=== PATIENT | female | born 1990 | race Caucasian/White ===

== ENCOUNTER → 2017-03-23 | Outpatient (REF) | LOC: WSOH 18:45 | DX: Z02.89 Encounter for other administrative examinations (principal) ==

== ENCOUNTER 2019-10-06 00:10 | Inpatient (IN) | payer OTHER ==
[2019-10-06] VITALS (24 sets, daily range): BP systolic 112–145; BP diastolic 58–89; PULSE 82–126; TEMP 97.2–98.7
[~2019-10-06] VITALS: Ht 162.6 cm; Wt 81.8 kg
--- NOTE | 2019-10-06 00:15 | NUR ---
G1 at 39 weeks and 3 days arrives to unit with complaint of contractions every 5 minutes for the past hour. Pt reports contractions started getting worse around 1600 but only every 10 minutes. Pt denies LOF and has had some bloody show. Good movement. Pt oriented to room, call light within reach, bed in low and locked position. Clean gown on. US and toco explained and applied. Pt reports having a subchorionic hematoma that has resolved and baby had been breech up until 36 weeks. Vital signs obtained. Admission assessment started. Plan of care reviewed. SVE -/-1, membranes intact.
--- NOTE | 2019-10-06 00:50 | NUR ---
Pt desires intermittent monitoring but Category 2 FHR tracing at this time with no accelerations. Pt repositioned to left lateral and ice chips given to patient.
--- NOTE | 2019-10-06 01:00 | NUR ---
0100 - IV attempted in left forearm by this RN, unsuccessful. 2nd RN called to bedside. 0115 - IV attempt in right hand and left forearm, unsuccessful. supervisor garage called to bedside to help. 0125 - supervisor garage at bedside. IV attempt in left hand and right hand, unsuccessful. Additional RN called to bedside. 0140 - Category 1 FHR tracing obtained. Pt wishing to be able to move and take monitors off. Monitors removed. Plan of care reviewed. 0145 - [employer]ADEM[employer] A[employer]IXER at bedside for IV placement. Attempt in right AC unsuccessful. IV started in left AC with 20G. Admission labs obtained off IV start.
[2019-10-06] MEDS ORDERED: PRENATAL TABLET PO (01:28)
[2019-10-06] MEDS ORDERED: VITAMIND3 5000 PO (01:29)
[2019-10-06 02:29] LABS: BASO % 0.2 % (0.0-2.0); EOS % 0.1 % (0-4.0); GRAN # 14.9 (1.4-6.5); GRAN % 86.2 % (42.2-75.2); HEMATOCRIT 43.5 % (37.0-47.0); HEMOGLOBIN 14.7 g/dl (12.5-16.0); LYMPH # 1.5 (1.2-3.4); LYMPH % 8.6 % (20.0-51.0); MEAN CELL VOLUME 92 fl (80.0-100.0); MEAN CORPUSCULAR HEMOGLOBIN 31 pg (27.0-31.0); MEAN CORPUSCULAR HGB CONC 34 g/dl (33.0-37.0); MEAN PLATELET VOLUME 10.1 fl (7.4-10.4); MONO # 0.8 (0.1-0.6); MONO % 4.4 % (1.7-9.3); PLATELET COUNT 208 K/mm3 (130-400); RED BLOOD COUNT 4.71 M/mm3 (4.10-5.30); REDCELL DISTRIBUTION WIDTH-CV 12.8 % (11.5-14.5)
--- NOTE | 2019-10-06 02:45 | NUR ---
0220 - Monitors on for intermittent monitoring. Pt sitting on birthing ball. Maternal HR tracing at times due to maternal positioning, RN at bedside to handhold monitor. 0240 - Pt reports feeling more pressure in rectum. Back in bed for SVE. SVE /-1, membranes intact. Plan of care reviewed. Pt back to birthing ball. 0245 - Category 1 FHR tracing obtained. Monitors removed.
--- NOTE | 2019-10-06 03:25 | NUR ---
[id number] Monitors on for intermittent monitoring. Pt sitting on birthing ball with spouse provided counter pressure to lower back. RN handholding monitor. Contractions palpate firm. Monitors removed for intermittent monitoring after 20 minutes. Plan of care reviewed with patient and spouse.
--- NOTE | 2019-10-06 04:50 | NUR ---
[id number] Monitors on for intermittent monitoring. RN at bedside handholding monitors. Contractions palpate firm. Category 1 FHR tracing obtained. Monitors off after 20 minutes. Pt states feeling more rectal pressure and urge to push with contractions SVE 9/90/0, bulging bag of water.
--- NOTE | 2019-10-06 05:51 | NUR ---
0510 - Pt reports feeling more of an urge to push. SVE /0 with bulging bag of water [id number] Intermittent monitoring started. RN handholding US while patient sits on birthing ball. Pt breathing well through contractions. Contractions palpate firm.
--- NOTE | 2019-10-06 06:15 | NUR ---
Bedside report given to STEPHANE Alejo.
[2019-10-07 04:00] VITALS: BP 109/60; PULSE 91; TEMP 98.4
[2019-10-07 07:13] VITALS: BP 114/72; PULSE 78; TEMP 97.8
--- NOTE | 2019-10-07 10:42 | NUR ---
Initial visit; Parents thanked [employer] for offering congratulations and God's blessings for the of their daughter.
[2019-10-07 15:41] VITALS: BP 124/68; PULSE 76; TEMP 98.1
[2019-10-07 21:30] VITALS: BP 119/68; PULSE 90; TEMP 98.7
[2019-10-08 09:35] VITALS: BP 126/73; PULSE 85; TEMP 98.5
--- NOTE | 2019-10-08 11:00 | NUR ---
discharge instructions given to pt and . Verbalized understanding, no further questions noted. bands matched and hugs tag removed.
== END 2019-10-08 11:15 | disposition home or self-care (01) | DRG 807 ==
LOC: LDRO 00:10 → OB 00:15 → LDR 00:15 → OB 14:58
PROVIDERS: ADMIT Obstetrics & Gynecology
PROC: 10E0XZZ Delivery of Products of Conception, External Approach (ICD-10-PCS; principal; 2019-10-06)
PROC: 0KQM0ZZ Repair Perineum Muscle, Open Approach (ICD-10-PCS; 2019-10-06)
DX: O77.0 Labor and delivery complicated by meconium in amniotic fluid (principal); Z37.0 Single live birth; O70.1 Second degree perineal laceration during delivery; O69.1XX0 Labor and delivery complicated by cord around neck, with compression, not applicable or unspecified; Z3A.39 39 weeks gestation of pregnancy
CPT/HCPCS: J2590; J7120